=== PATIENT | male | born 1965 | race Caucasian/White ===

== ENCOUNTER 2017-03-04 16:37 | Emergency (ER) | payer OTHER ==
[2017-03-04] MEDS ORDERED: ORPHENADRINE 30 MG/ML 2 ML VIAL IM STA (16:56)
--- NOTE | 2017-03-04 17:30 | XR ---
Lumbar spine HISTORY: Low back pain, trauma 3 views of the lumbar spine There is multilevel spondylosis. Surgical clips in the right upper quadrant. Lumbar vertebral bodies show preserved height and alignment. Loss of disc height L5-S1. Sclerosis present in the posterior el ements. IMPRESSION: Degenerative disc disease and possible facet arthropathy.
[2017-03-04] MEDS ORDERED: HYDROcodone/APAP 5-325MG 1 EACH TAB PO STA (17:58)
--- NOTE | 2017-03-04 18:00 | ED ---
General Adult HPI - General Chief complaint: Back Pain/Injury Stated complaint: Back Pain Time Seen by Provider: 03/04/17 16:51 Source: patient, RN notes reviewed Mode of arrival: wheelchair Limitations: no limitations - History of Present Illness Initial comments: Patient is a 51-year-old male who presents emergency room today with a chief complaint of increased lower back pain. He does admit that he was working well. When he went to stand up and felt a pop in his lower back. Patient also admits that he tripped and fell backwards after this happened. Patient does admit to pain in the lower back greater on the side. Patient denies any lumbar radiculopathy. Denies any saddle anesthesia. Denies any bowel or bladder incontinence or retention. He denies any complaints or associated symptoms. States the pain is worse with movements. He states he did not take any medications prior to arrival. He admits that he does take methotrexate and is supposed to avoid anti-inflammatories. Patient denies any recent fever, chills, shortness of breath, chest pain, abdominal pain, nausea or vomiting, numbness or tingling, dysuria or hematuria, constipation or diarrhea, headaches or visual changes, or any other complaints. - Related Data Home Medications Medication Instructions Recorded Confirmed Methotrexate Sodium [Methotrexate] 17.5 mg PO GEIGER 03/04/17 03/04/17 Multivitamins, Thera [Multivitamin 1 tab PO DAILY 03/04/17 03/04/17 (formulary)] Venlafaxine HCl [Effexor] 37.5 mg PO DAILY 03/04/17 03/04/17 Zolpidem [Ambien] 10 mg PO HS PRN 03/04/17 03/04/17 Previous Rx's Medication Instructions Recorded Cyclobenzaprine [Flexeril] 10 mg PO TID #20 tab 03/04/17 Hydrocodone/Acetaminophen [Goddard 1 each PO Q6HR PRN #20 tab 03/04/17 5-325] Allergies Allergy/AdvReac Type Severity Reaction Status Date / Time No Known Allergies Allergy Verified 03/04/17 17:36 Review of Systems ROS Statement: Those systems with pertinent positive or pertinent negative responses have been documented in the HPI. ROS Other: All systems not noted in ROS Statement are negative. Past Medical History Past Medical History: No Reported History History of Any Multi-Drug Resistant Organisms: None Reported Past Surgical History: Cholecystectomy Past Psychological History: No Psychological Hx Reported Smoking Status: Former smoker Past Alcohol Use History: Occasional Past Drug Use History: None Reported General Exam - General Exam Comments Initial Comments: General: The patient is awake and alert, in no distress, and does not appear acutely ill. Eye: Pupils are equal, round and reactive to light, extra-ocular movements are intact. No nystagmus. There is normal conjunctiva bilaterally. No signs of icterus. Ears, nose, mouth and throat: There are moist mucous membranes and no oral lesions. Neck: The neck is supple, there is no tenderness or JVD. Cardiovascular: There is a regular rate and rhythm. No murmur, rub or gallop is appreciated. Respiratory: Lungs are clear to auscultation, respirations are non-labored, breath sounds are equal. No wheezes, stridor, rales, or rhonchi. Gastrointestinal: Soft, non-distended, non-tender abdomen without masses or organomegaly noted. There is no rebound or guarding present. No CVA tenderness. Musculoskeletal: Normal ROM. Patient does have normal appearance of thoracic, lumbar spine. No step-offs forms appreciated. Mild tenderness to down at L4- L5 of the lumbar spine. Increased paravertebral tenderness on the left side. Strength 5/5. Sensation intact. Pulses equal bilaterally 2+. Neurological: A&O x 3. CN II-XII intact, There are no obvious motor or sensory deficits. Coordination appears grossly intact. Speech is normal. Skin: Skin is warm and dry and no rashes or lesions are noted. Psychiatric: Cooperative, appropriate mood & affect, normal judgment. Limitations: no limitations Course Vital Signs 03/04/17 16:46 Temperature 98.2 F Pulse Rate 76 Respiratory 20 Rate Blood Pressure 113/73 O2 Sat by Pulse 98 Oximetry Medical Decision Making - Medical Decision Making Patient's x-rays reviewed and are negative for any acute abnormalities. Patient feeling better after muscle relaxer here in the emergency room. Will be discharged home with pain medication of Goddard and Flexeril. He is advised follow-up with family doctor over the next 2 days. Patient is advised that it may make him drowsy and that he should not drive with these medications. He states understanding and is in agreement. Disposition Clinical Impression: Acute low back pain Disposition: HOME SELF-CARE Condition: Good Instructions: Acute Low Back Pain (ED) Additional Instructions: Please use medication as discussed. Please be aware that medications may make you drowsy. Please follow-up with family doctor in the next 2 days of symptoms have not improved. Please return to emergency room if the symptoms increase or worsen or for any other concerns. Prescriptions: Cyclobenzaprine [Flexeril] 10 mg PO TID #20 tab Hydrocodone/Acetaminophen [Goddard 5-325] 1 each PO Q6HR PRN #20 tab PRN Reason: Pain Time of Disposition: 17:52
[2017-03-04 18:11] VITALS: BP 114/78; RESP 16; TEMP 98
[2017-03-04 18:12] VITALS: PULSE 70
== END 2017-03-04 18:13 | disposition home or self-care (01) ==
LOC: EC 16:37
DX: M54.5 Low back pain (principal); Z87.891 Personal history of nicotine dependence; Z79.899 Other long term (current) drug therapy
CPT/HCPCS: 72100; 99283; 96372; J2360

== ENCOUNTER → 2020-03-03 | Outpatient (CLI) | payer OTHER ==
--- NOTE | 2020-03-03 11:57 | CT ---
EXAMINATION TYPE: CT abdomen pelvis w con DATE OF EXAM: 03/03/2020 COMPARISON: None. HISTORY: Scrotal varices CT DLP: 1396 mGycm, Automated Exposure Control for Dose Reduction was Utilized. CONTRAST: CT scan of the abdomen and pelvis is performed with oral and with IV Contrast, patient injected with 100 ml mL of Isovue 300. FINDINGS: LUNG BASES: There is left greater than right bibasilar linear scarring and/or atelectasis. LIVER/GB: Cholecystectomy clips are seen. Liver is diffusely low dense relative to the spleen suggest ing diffuse fatty infiltration PANCREAS: No significant abnormality is seen. SPLEEN: No significant abnormality is seen. ADRENALS: No significant abnormality is seen. KIDNEYS: No significant abnormality is seen. BOWEL: Oral contrast reaches level of rectum. No suspicious small or large bowel dilatation. Terminal ileum appears within normal limits coronal image 55. Normal contrast-filled appendix medially from c ecum coronal image 61. PROSTATE/SEMINAL VESICLES: Prostate gland suspected mildly enlarged bulging on bladder base. Correlat e for early BPH. LYMPH NODES: No greater than 1cm abdominal or pelvic lymph nodes are appreciated. OSSEOUS STRUCTURES: Mild to moderate joint space loss in both hips. OTHER: Minimal peripheral plaque in the abdominal aorta. Imaging through the entire scrotum shows sym metric small scrotal fluid collection or hydroceles. IMPRESSION: No suspicious obstructing abdominal or pelvic mass or adenopathy including retroperitoneu m. Fairly unremarkable study.
== END | disposition home or self-care (01) ==
LOC: RADCTMAIN 09:22
PROVIDERS: ATTEND Urology
DX: I86.1 Scrotal varices (principal)
CPT/HCPCS: 74177; Q9967

== ENCOUNTER → 2020-08-26 | Outpatient (CLI) | payer OTHER ==
--- NOTE | 2020-08-26 18:02 | CONS ---
CONSULTATION DATE OF SERVICE: 08/26/2020 This patient is a 55-year-old gentleman who has been evaluated in the sleep center for possible obstructive sleep apnea-hypopnea syndrome. HISTORY OF PRESENT ILLNESS/SLEEP-WAKE EVALUATION: Patient's usual sleep schedule is from 10:30 p.m. to 6:30 a.m. on weekdays and from 11:30 p.m. to between 5 and 7:30 a.m. on weekends. Usually no problems with falling asleep at present, but before patient had a lot of difficulties falling asleep. He wakes up from sleep two times with episodes of choking. According to his , he snores and has episodes of choking at night. In the morning the patient wakes up tired, has difficulties paying attention, worries about his sleep, has problems with concentration irritability, depression, claustrophobia and anxiety. [place] Sleepiness Scale is 9. PAST MEDICAL HISTORY: Positive for anxiety, psoriasis of the skin and psoriatic arthritis. PAST SURGICAL HISTORY: Cholecystectomy. FAMILY HISTORY: Cancer, acid reflux, hypertension. REVIEW OF SYSTEMS: Snoring, awakenings from sleep, claustrophobia. PHYSICAL EXAMINATION: GENERAL: A pleasant gentleman without distress. VITAL SIGNS: BP 143/88, HR 64, RR 15, height 5 feet 11 inches, weight 208.8. Temperature 98.2, oxygen saturation at room air 97%. HEENT: PERRLA, EOMI. Evaluation of oropharynx showed tongue protrudes midline. Extremely low position of soft palate. Mallampati IV. NECK: Supple. No JVD. Thyroid is not palpable. Wide neck measuring 18-1/2 inches in circumference. LUNGS: Clear to percussion and to auscultation. Good air exchange. No wheezing or rhonchi. HEART: S1, S2 regular. No murmurs, gallops or rubs. ABDOMEN: Slightly obese. EXTREMITIES: No clubbing or cyanosis. PUBLIC RELATIONS ACCOUNT EXECUTIVE: Awake, alert, and oriented X3. Cranial nerves 2 to 7 intact. There is no fasciculation or atrophy. noted. No focal deficits observed. IMPRESSION: 1. Snoring, witnessed episodes of choking, extremely low position of soft palate, Mallampati IV, wide neck at 18-1/2 inches in circumference. 2. Anxiety. 3. Psoriasis of the skin. 4. History of psoriatic arthritis. 5. Status post cholecystectomy. 6. Overweight. BMI 29.0. PLAN: 1. Polysomnography for evaluation of patient's breathing during sleep. 2. CPAP/BiPAP titration if sleep study confirms obstructive sleep apnea-hypopnea syndrome. 3. Preferable position during sleep on the side. 4. No driving if patient feels any sleepiness. 5. I will see patient for follow up visit to explain results of testing and following plan. Thank you very much for referring this patient for consultation. Sincerely, Nicolas Conroy MD, PhD, FAASM Diplomat of [employer] [employer] [employer] Accessories Repairer of [facility] [place] MMODL / IJN: [id number] /
== END | disposition home or self-care (01) ==
LOC: SLEEP 15:45
PROVIDERS: ATTEND Internal Medicine
DX: R06.83 Snoring (principal); L40.9 Psoriasis, unspecified; F41.9 Anxiety disorder, unspecified; E66.3 Overweight; Z87.39 Personal history of other diseases of the musculoskeletal system and connective tissue; Z90.49 Acquired absence of other specified parts of digestive tract; Z98.890 Other specified postprocedural states; Z68.29 Body mass index [BMI] 29.0-29.9, adult
CPT/HCPCS: 99211

== ENCOUNTER → 2021-01-19 | Outpatient (CLI) | payer OTHER ==
--- NOTE | 2021-01-19 22:07 | SFUN ---
SLEEP CENTER FOLLOW UP NOTE DATE OF SERVICE: 01/19/2021 This 55-year-old gentleman has been followed in Sleep Center for treatment of obstructive sleep apnea-hypopnea syndrome. Recently the patient had a polysomnogram which showed severe obstructive sleep apnea, and I discussed the results of his sleep studies with the patient in detail. After the polysomnogram he had CPAP titration and his respiration normalized. I wrote a prescription for CPAP equipment, and today is his first visit after he started to use CPAP machine. The patient is able to use his CPAP machine without significant problems. He did not use it for several weeks, though, because at that time he had COVID-19. At present he is using the machine. He sleeps better with the machine. [place] Sleepiness Scale is 5. I checked his CPAP unit. CPAP pressure is 8 cm of water. Usage is 19/30 nights, and 13/30 nights for more than 4 hours, average usage 5.2 hours per night. Leak is 10 L/minute. Apnea-hypopnea index is 4.1, which is normal. MEDICATIONS: Lorazepam, zolpidem, Humira. PHYSICAL EXAMINATION: GENERAL: A pleasant patient in no distress. VITAL SIGNS: BP 133/78, HR 72, RR 16, weight 210.6, temperature 97.0, oxygen saturation at room air 98%. HEENT: PERRLA, EOMI. Evaluation of oropharynx showed tongue protrudes midline. Extremely low position of soft palate. Mallampati IV. NECK: Supple. No JVD. Thyroid is not palpable. LUNGS: Clear to percussion and to auscultation. Good air exchange. No wheezing or rhonchi. HEART: S1, S2 regular. No murmurs, gallops or rubs. ABDOMEN: Soft and nontender. Bowel sounds are present. No organomegaly appreciated. EXTREMITIES: No clubbing or cyanosis. NEWSPAPER DELIVERY COUNSELOR: Awake, alert, and oriented X3. Cranial nerves 2 to 7 intact. There is no fasciculation or atrophy. noted. No focal deficits observed. IMPRESSION: 1. Severe obstructive sleep apnea-hypopnea syndrome; apnea-hypopnea index 56.4 with oxygen desaturation to 71%, under control with CPAP. Patient is benefitting from treatment. 2. History of COVID-19 several weeks ago. 3. Anxiety. 4. History of psoriasis. 5. History of psoriatic arthritis. 6. Status post cholecystectomy. PLAN: 1. I discussed the necessity of using CPAP equipment every night for the whole night, and the patient promised to do so. 2. Sleep hygiene with regular time in bed for at least 7-1/2 to 8 hours. 3. Precautions related to driving. No driving if feeling sleepiness. 4. I will maintain all necessary prescription for PAP supplies including mask, tube, filters. 5. Watching weight. 6. Follow-up visit in 6 months or earlier if patient has any problems. Thank you very much for allowing me to participate in the management of your patient. Sincerely, Nicolas Conroy MD, PhD, FAASM Diplomat of [employer] [employer] [place] [employer] Animal Rides Manager of [facility] [place] MMODL / CHERYLN: [id number] /
== END ==
LOC: SLEEP 15:20
PROVIDERS: ATTEND Internal Medicine
DX: G47.33 Obstructive sleep apnea (adult) (pediatric) (principal); F41.9 Anxiety disorder, unspecified; Z90.49 Acquired absence of other specified parts of digestive tract; Z86.16 Personal history of COVID-19; Z87.2 Personal history of diseases of the skin and subcutaneous tissue; Z87.39 Personal history of other diseases of the musculoskeletal system and connective tissue; Z79.899 Other long term (current) drug therapy; Z87.891 Personal history of nicotine dependence

== ENCOUNTER → 2021-08-11 | Outpatient (CLI) | payer BC ==
--- NOTE | 2021-08-11 21:02 | SFUN ---
SLEEP CENTER FOLLOW UP NOTE DATE OF SERVICE: 08/11/2021 INTERVAL HISTORY: 56-year-old gentleman has been followed in Sleep Center for treatment of obstructive sleep apnea-hypopnea syndrome. The patient continues to use his CPAP equipment every night, but presently he has some awakenings from sleep while using his CPAP equipment. [place] Sleepiness Scale today is 4. Sometimes patient has difficulties to initiate sleep when wakes up from sleep at the middle of the night. I checked his CPAP unit. Pressure is 8 cm of water. Usage is 28/30 nights for more than 4 hours, average 7.8 hours per night. Leak is 2 L/minute which is great. Apnea- hypopnea index is 4.3. The patient is using a fullface F20 ResMed medium size mask and he likes this mask. I checked condition of air filter it is acceptable. MEDICATIONS: Occasionally patient takes Ambien. PHYSICAL EXAMINATION: GENERAL: Patient in no distress. BP 105/67, HR 68, RR 14. Height 6 feet 0, weight 210.4, which is the same as during the last visit temperature 97.4, oxygen saturation at room air 95%. Oropharynx extremely low position of soft palate, Mallampati 4. NECK: Supple, no JVD. Thyroid is not palpable. LUNGS: Clear to percussion and to auscultation. Good air exchange. No wheezing or rhonchi. HEART: S1, S2 regular. No murmurs, gallops, or rubs. ABDOMEN: Soft and nontender. Bowel sounds are present. No organomegaly appreciated. EXTREMITIES: No clubbing or cyanosis. PROGRAMMING MANAGER: Awake, alert, and oriented X3. Cranial nerves 2 to 7 intact. There is no fasciculation or atrophy. noted. No focal deficits observed. IMPRESSION: 1. Severe obstructive sleep apnea-hypopnea syndrome, apnea-hypopnea index 56.4 with oxygen desaturation to 71%. The patient demonstrated great compliance with treatment benefitting from treatment. The patient indicated that he has some awakenings from sleep while using CPAP. 2. History of Covid 19 in December of 2020. 3. Anxiety. 4. History of psoriasis. 5. History of psoriatic arthritis. 6. Status post cholecystectomy. PLAN: 1. I changed regimen of his CPAP unit to the range of the pressure 5-12. 2. Patient will continue to use PAP equipment every night for the whole night. 3. Sleep hygiene with regular time in bed for at least 7-1/2 to 8 hours. 4. Precautions related to driving. No driving if feeling sleepiness. 5. I will maintain all necessary prescription for PAP supplies including mask, tube, filters. 6. Watching weight. 7. I discussed with the patient psychological techniques for treatment of insomnia including stimulus control, paradoxical intention, worry time, no watching clock. 8. Follow-up visit in 6 months or earlier if patient has any problems. I spent with the patient and documentation of 30 minutes. Thank you very much for allowing me to participate in management of your patient. Sincerely, Nicolas Conroy MD, PhD, FAASM Diplomat of [employer] [employer] Sleep Medicine Board of [place] [employer] Medicine Cra of [facility] [place] MMODL / CHERYLN: [id number] /
== END | disposition home or self-care (01) ==
LOC: SLEEP 14:29
PROVIDERS: ATTEND Internal Medicine
DX: G47.33 Obstructive sleep apnea (adult) (pediatric) (principal); Z86.16 Personal history of COVID-19; F41.9 Anxiety disorder, unspecified; Z87.39 Personal history of other diseases of the musculoskeletal system and connective tissue; K91.5 Postcholecystectomy syndrome

== ENCOUNTER → 2022-02-09 | Outpatient (CLI) | payer BC ==
--- NOTE | 2022-02-09 13:15 | SFUN ---
SLEEP CENTER FOLLOW UP NOTE DATE OF SERVICE: 02/09/2022 56-year-old gentleman has been followed in Sleep Center for treatment of obstructive sleep apnea-hypopnea syndrome. The patient continues to use his CPAP equipment every night, getting his supplies in time, changing air filter. [place] Sleepiness Scale today is 5, which is normal. During previous visit, I changed his regimen in his machine from a constant pressure to automatic regimen. I checked CPAP unit. Range of the pressure 5-12 average, 11.3, usage 30/30 nights for more than 4 hours, average 7.6 hours per night. Leak is 1 L/minute. Apnea-hypopnea index is 1.6 which is totally normal. MEDICATIONS: Humira, Ambien. PHYSICAL EXAMINATION: GENERAL: Patient in no distress. BP 130/80, HR 58, RR 16, weight 212.4, temperature 97.5, oxygen saturation at room air 97%. Oropharynx: Extremely low position of soft palate, Mallampati 4. NECK: Supple, no JVD. Thyroid is not palpable. LUNGS: Clear to percussion and to auscultation. Good air exchange. No wheezing or rhonchi. HEART: S1, S2 regular. No murmurs, gallops, or rubs. ABDOMEN: Soft and nontender. Bowel sounds are present. No organomegaly appreciated. EXTREMITIES: No clubbing or cyanosis. SEAM CHECKER: Awake, alert, and oriented X3. Cranial nerves 2 to 7 intact. There is no fasciculation or atrophy. noted. No focal deficits observed. IMPRESSION: 1. Severe obstructive sleep apnea-hypopnea syndrome apnea-hypopnea index on original study 56.4. The patient demonstrated 100% compliance with treatment, benefitting from treatment, normal respiration on CPAP. Apnea-hypopnea index reduced after adjusting pressure on CPAP unit during previous visit. 2. History of COVID 19 in December 2020. 3. History of psoriasis. 4. History of psoriatic arthritis. 5. Anxiety. 6. Status post cholecystectomy. PLAN: 1. Patient will continue to use PAP equipment every night for the whole night. 2. Sleep hygiene with regular time in bed for at least 7-1/2 to 8 hours. 3. Precautions related to driving. No driving if feeling sleepiness. 4. I will maintain all necessary prescription for PAP supplies including mask, tube, filters. 5. Watching weight. 6. Follow-up visit in 6 months or earlier if patient has any problems. Thank you very much for allowing me to participate in the management of your patient. Sincerely, Nicolas Conroy MD, PhD, FAASM Diplomat of [employer] [employer] Sleep Medicine Board of [place] [employer] of Internal Medicine Direct Care Provider of [facility] [place] MMBEVERLY / ONOFRE: [id number] /
== END | disposition home or self-care (01) ==
LOC: SLEEP 10:17
PROVIDERS: ATTEND Internal Medicine
DX: G47.33 Obstructive sleep apnea (adult) (pediatric) (principal); Z86.16 Personal history of COVID-19; F41.9 Anxiety disorder, unspecified; Z87.39 Personal history of other diseases of the musculoskeletal system and connective tissue; Z90.49 Acquired absence of other specified parts of digestive tract

== ENCOUNTER → 2023-02-08 | Outpatient (CLI) | payer BC ==
--- NOTE | 2023-02-08 11:14 | P.PN ---
Subjective DATE: 02/08/2023 FOLLOW UP VISIT. Patient with obstructive sleep apnea hypopnea syndrome return to sleep center for follow-up visit. Information from previous visit have been reviewed. Patient is using PAP equipment every night for the whole night, getting PAP supplies in time. The patient does not have significant problems with the mask, PAP unit and humidification. [place] sleepiness scale is 7, which is normal. I checked information from PAP unit and explained it to the patient in details. PAP unit pressure 5-12, average 11.9 cm H2O. Usage is 100 % for more then 4 hours, average 7.5 hours per night. Leak is 0.9 l/m, which is in acceptable range. Apnea Hypopnea Index is 0.7, which is normal. MEDICATIONS:1. Ambien as needed 2. Lorazepam as needed 3. Humira twice a months During physical exam: GENERAL: A pleasant patient without any distress. VITAL SIGNS: BP 115/73, HR 100, RR 16, weight 233, temperature 97.8, oxygen saturation at room air 100 % . HEENT: PERRLA, EOMI.low position of soft palate, Mallapati 4 . NECK: Supple. No JVD. LUNGS: Clear to percussion and to auscultation. Good air exchange. No wheezing or rhonchi. HEART: S1, S2 regular. ABDOMEN: Soft and nontender.[] EXTREMITIES: No clubbing or cyanosis. COP WINDER: Awake, alert, and oriented x3. No focal deficit. Impressions: 1. Obstructive sleep apnea-hypopnea syndrome. Patient demonstrated great compliance with treatment, benefiting from treatment. 2. Mild obesity, patient increased his weight on 21 pounds since previous visit, BMI 32.3. 3. History of psoriasis and psoriatic arthritis. 4. Anxiety. 5. History of COVID-19. 6. Status post cholecystectomy. Plan: 1. Continue using PAP equipment every night for the whole night. 2. To change air filter at least 1-2 times per month. 3. PAP unit should stay lower then position of the head. 4. Advised patient to remove all remaining water from humidifier canister daily and make it dry after each usage. Refill canister with fresh distilled water before each usage. 5. Sleep hygiene with regular time in bed for at least 8 hours. 6. Precautions related to driving. No driving if feel any sleepiness. 7. I will maintain prescription for PAP supplies including mask, tube, filters. 8. Follow up visit in 6 months or earlier if patient has any problems. 9. Watching and losing weight. Thank you very much for allowing me to participate in the management of your patient. Nicolas Conroy MD, PhD, FAASM. Diplomat of [place] [employer], Sleep Medicine Board by [place] [employer] Dishcloth Folder of [facility] [place]
== END ==
LOC: SLEEP 10:15
PROVIDERS: ATTEND Internal Medicine
DX: G47.33 Obstructive sleep apnea (adult) (pediatric) (principal); E66.9 Obesity, unspecified; L40.50 Arthropathic psoriasis, unspecified; F41.9 Anxiety disorder, unspecified; Z90.49 Acquired absence of other specified parts of digestive tract; Z86.16 Personal history of COVID-19; Z98.890 Other specified postprocedural states; Z99.89 Dependence on other enabling machines and devices; Z68.32 Body mass index [BMI] 32.0-32.9, adult; Z87.891 Personal history of nicotine dependence
CPT/HCPCS: 99212

== ENCOUNTER → 2024-02-14 | Outpatient (CLI) | payer BC ==
--- NOTE | 2024-02-14 12:05 | P.PN ---
Subjective DATE: 02/14/2024 FOLLOW UP VISIT. Patient with obstructive sleep apnea hypopnea syndrome return to sleep center for follow-up visit. Information from previous visit have been reviewed. Patient is using PAP equipment every night for the whole night, getting PAP supplies in time. The patient does not have significant problems with the mask, PAP unit and humidification. [place] sleepiness scale is 4. I checked information from PAP unit. PAP unit pressure 5-12, average 10.7 cm H2O. Usage is 100% for more then 4 hours, average 6.8 hours per night. Leak is perfect 0.1 l/m. Apnea Hypopnea Index is 0.7, which is normal. MEDICATIONS:1. Ambien as needed 2. Humira twice a month During physical exam: GENERAL: A pleasant patient without any distress. VITAL SIGNS: Please see below, weight is 196 pounds. HEENT: PERRLA, EOMI.low position of soft palate, Mallapati 4 . NECK: Supple. No JVD. LUNGS: Clear to percussion and to auscultation. Good air exchange. No wheezing or rhonchi. HEART: S1, S2 regular. ABDOMEN: Soft and nontender.[] EXTREMITIES: No clubbing or cyanosis. GLOVE MAKER: Awake, alert, and oriented x3. No focal deficit. Impressions: 1. Obstructive sleep apnea-hypopnea syndrome. Patient demonstrated great compliance with treatment, benefiting from treatment. 2. History of obesity, patient lost 37 pounds of weight, present body mass index 28.1. 3. History of anxiety. 4. History of psoriasis and psoriatic arthritis. 5. Status post COVID-19. 6. Status post cholecystectomy. Plan: 1. Continue using PAP equipment every night for the whole night. 2. To change air filter at least 1-2 times per month. 3. PAP unit should stay lower then position of the head. 4. Advised patient to remove all remaining water from humidifier canister daily and make it dry after each usage. Refill canister with fresh distilled water before each usage. 5. Sleep hygiene with regular time in bed for at least 8 hours. 6. Precautions related to driving. No driving if feel any sleepiness. 7. I will maintain prescription for PAP supplies including mask, tube, filters. 8. Follow up visit in 6 months or earlier if patient has any problems. 9. Watching weight. Thank you very much for allowing me to participate in the management of your patient. Nicolas Conroy MD, PhD, FAASM. Diplomat of [place] [employer], Sleep Medicine Board by [employer] [employer] Labor Contract Analyst of [facility] [place] Objective - Vital Signs Vital signs: Vital Signs Temp 97.9 F 02/14/24 11:36 Pulse 76 02/14/24 11:36 Resp 16 02/14/24 11:36 BP 142/90 02/14/24 11:36 Pulse Ox 99 02/14/24 11:36 FiO2 Intake & Output 02/13/24 02/14/24 02/14/24 18:59 06:59 18:59 Weight 88.904 kg
[2024-02-14 12:10] VITALS: BP 142/90; PULSE 76; RESP 16; TEMP 97.9
== END ==
LOC: 3 N SLEEP 10:59
PROVIDERS: ATTEND Internal Medicine
DX: G47.33 Obstructive sleep apnea (adult) (pediatric) (principal); E66.9 Obesity, unspecified; F41.9 Anxiety disorder, unspecified; Z86.16 Personal history of COVID-19; Z90.49 Acquired absence of other specified parts of digestive tract; Z87.39 Personal history of other diseases of the musculoskeletal system and connective tissue; Z99.89 Dependence on other enabling machines and devices; Z68.28 Body mass index [BMI] 28.0-28.9, adult; Z87.891 Personal history of nicotine dependence
CPT/HCPCS: 99212

== ENCOUNTER 2024-02-23 14:53 | Emergency (ER) | payer BC ==
--- NOTE | 2024-02-23 15:35 | ED ---
Fall HPI - General Chief Complaint: Fall Stated Complaint: Fall Time Seen by Provider: 02/23/24 15:33 Source: patient, family, RN notes reviewed Mode of arrival: ambulatory Limitations: no limitations - History of Present Illness Initial Comments: 58-year-old male presenting to the ER with a chief complaint of a fall. Patient states he was working on his boat and accidentally missed a step when coming down the ladder and accidentally fell. He states he was about 5 feet high and landed on his left side on the cement. He denies any head injury, loss of consciousness or blood thinner use. He reports most of his pain is over his left ribs and increases with breathing. He also reports left elbow injury and abrasion. Tetanus is up-to-date. He denies any dizziness, lightheadedness, shortness of breath or chest pain prior to fall. No other complaints at this time. - Related Data Home Medications Medication Instructions Recorded Confirmed Zolpidem [Ambien] 10 mg PO HS PRN 03/04/17 02/23/24 Adalimumab [Humira(Cf) Pen] 40 mg SQ Q14D 02/23/24 02/23/24 LORazepam [Ativan] 0.5 mg PO BID PRN 02/23/24 02/23/24 Allergies Allergy/AdvReac Type Severity Reaction Status Date / Time No Known Allergies Allergy Verified 02/23/24 15:47 Review of Systems ROS Statement: Those systems with pertinent positive or pertinent negative responses have been documented in the HPI. ROS Other: All systems not noted in ROS Statement are negative. Past Medical History Past Medical History: No Reported History History of Any Multi-Drug Resistant Organisms: None Reported Past Surgical History: Cholecystectomy Past Psychological History: No Psychological Hx Reported Smoking Status: Never smoker Past Alcohol Use History: Occasional Past Drug Use History: None Reported General Exam Limitations: no limitations General appearance: alert, in no apparent distress Head exam: Present: atraumatic, normocephalic, normal inspection Eye exam: Present: normal appearance, PERRL, EOMI. Absent: scleral icterus, conjunctival injection, periorbital swelling Neck exam: Present: normal inspection. Absent: tenderness, meningismus, lymphadenopathy Respiratory exam: Present: normal lung sounds bilaterally, chest wall tenderness (left posterior ribs. Appropriate chest wall movement with inspiration and expiration). Absent: respiratory distress, wheezes, rales, rhonchi, stridor Cardiovascular Exam: Present: regular rate, normal rhythm, normal heart sounds. Absent: systolic murmur, diastolic murmur, rubs, gallop, clicks Extremities exam: Present: normal inspection, full ROM, normal capillary refill. Absent: tenderness, pedal edema, joint swelling, calf tenderness Back exam: Present: normal inspection Skin exam: Present: abrasion (Superficial abrasion to left elbow. Surrounding edema. Patient has full active range of motion. 2+ left radial pulse. Sensation intact.) Course Vital Signs 02/23/24 02/23/24 15:10 17:24 Temperature 97.8 F 98.1 F Pulse Rate 79 80 Respiratory 18 18 Rate Blood Pressure 129/88 138/83 O2 Sat by Pulse 99 100 Oximetry Medical Decision Making - Medical Decision Making Was pt. sent in by a medical professional or institution (, PA, DEPARTMENT OF NATURAL RESOURCES OFFICER, urgent care, hospital, or snf...) When possible be specific @ -No Did you speak to anyone other than the patient for history (EMS, parent, family, police, friend...)? What history was obtained from this source @ -No Did you review nursing and triage notes (agree or disagree)? Why? @ -I reviewed and agree with nursing and triage notes Were old charts reviewed (outside hosp., previous admission, EMS record, old EKG, old radiological studies, urgent care reports/EKG's, snf records)? Report findings @ -No old charts were reviewed Differential Diagnosis (chest pain, altered mental status, abdominal pain women, abdominal pain men, vaginal bleeding, weakness, fever, dyspnea, syncope, headache, dizziness, GI bleed, back pain, seizure, CVA, palpatations, mental health, musculoskeletal)? @ -Fracture, dislocation, contusion, hematoma, intracranial hemorrhage, concussion, abrasion, laceration this list does not like to be all-inclusive EKG interpreted by me (3pts min.). @ -None X-rays interpreted by me (1pt min.). @ -Left elbow x-ray interpreted by me negative for acute process. Left ribs AP chest x-ray negative for acute process. CT interpreted by me (1pt min.). @ -None done U/S interpreted by me (1pt. min.). @ -None done What testing was considered but not performed or refused? (CT, X-rays, U/S, labs)? Why? @ -None What meds were considered but not given or refused? Why? @ -None Did you discuss the management of the patient with other professionals (professionals i.e. , PA, DEPARTMENT OF NATURAL RESOURCES OFFICER, lab, RT, psych nurse, socially responsible investment adviser, polysomnography tech, teacher, adult probation officer, medical case worker)? Give summary @ -No Was smoking cessation discussed for >3mins.? @ -No Was critical care preformed (if so, how long)? @ -No Were there social determinants of health that impacted care today? How? (Homelessness, low income, unemployed, alcoholism, drug addiction, transportation, low edu. Level, literacy, decrease access to med. care, [facility], rehab)? @ -No Was there de-escalation of care discussed even if they declined (Discuss DNR or withdrawal of care, Hospice)? DNR status @ -No What co-morbidities impacted this encounter? (DM, HTN, Smoking, COPD, CAD, Cancer, CVA, ARF, Chemo, Hep., AIDS, mental health diagnosis, sleep apnea, morbid obesity)? @ -None Was patient admitted / discharged? Hospital course, mention meds given and route, prescriptions, significant lab abnormalities, going to OR and other pertinent info. @ -Discharge. 58-year-old male presenting to the ER with chief complaint of fall. History and physical exam completed. Vitals stable. Patient no signs of acute distress and nontoxic-appearing. Abrasion to left elbow. Bilateral upper and lower extremities neurovascular intact. No evidence of flail chest. Lung sounds clear and present in all lung fox. X-rays obtained negative for acute process. Pain control achieved in the ER. Results discussed with patient, all questions answered. Patients tetanus is UTD. Incentive spirometer given. Tylenol 3 starter pack given. Strict return parameters discussed. Patient discharged in stable condition with follow-up to PCP. Patient verbally expressed understanding and agreement with care plan. Case discussed with ED attending, Dr. Valdovinos. Undiagnosed new problem with uncertain prognosis? @ -No Drug Therapy requiring intensive monitoring for toxicity (Heparin, Nitro, Insulin, Cardizem)? @ -No Were any procedures done? @ -No Diagnosis/symptom? @ -Rib contusion/abrasion Acute, or Chronic, or Acute on Chronic? @ -Acute Uncomplicated (without systemic symptoms) or Complicated (systemic symptoms)? @ -Uncomplicated Side effects of treatment? @ -No Exacerbation, Progression, or Severe Exacerbation? @ -No Poses a threat to life or bodily function? How? (Chest pain, [place], [place], pneumonia, PE, COPD, DKA, ARF, appy, cholecystitis, CVA, Diverticulitis, Homicidal, Suicidal, threat to staff... and all critical care pts) @ -No - Radiology Data Radiology results: report reviewed, image reviewed Disposition Clinical Impression: Fall, Rib contusion Disposition: HOME SELF-CARE Condition: Stable Instructions (If sedation given, give patient instructions): How to Use an Incentive Spirometer (ED), Fall Prevention (ED) Additional Instructions: Only take Tylenol 3s for extreme pain. Use incentive spirometer once per hour. Follow-up with PCP. Return to the ER for any new or worsening concerns. Is patient prescribed a controlled substance at d/c from ED?: No Referrals: Chidi Salazar MD [Primary Care Provider] - 1-2 days Time of Disposition: 17:11
[2024-02-23 15:41] VITALS: RESP 18
[2024-02-23] MEDS: ACETAMINOPHEN TAB 325 MG TAB PO STA (15:53)
--- NOTE | 2024-02-23 17:03 | XR ---
EXAMINATION TYPE: XR ribs LT w PA chest xray (5 views), XR elbow complete 3 views LT DATE OF EXAM: 02/23/2024 Comparison: None Clinical History: 58-year-old male with pain s/p fall Findings: Chest: The cardiomediastinal silhouette, aorta, and pulmonary vasculature are within normal limits. There i s strandy atelectasis at the left base. No consolidation or pleural effusion. No displaced left rib fracture seen. Cholecystectomy clips. Left elbow: There is soft tissue swelling about the elbow especially laterally and overlying the olecranon. Elbo w joint effusion. No acute fracture, subluxation, dislocation seen. Impression: 1. Chest: Strandy left basilar atelectasis. No acute cardiopulmonary process or displaced left rib fr acture seen. 2. Left elbow: Soft tissue swelling without joint effusion or acute osseous abnormality seen.
[2024-02-23] MEDS: HYDROmorphone 0.5 MG/0.5 ML SYRINGE IM STA (17:19)
[2024-02-23] MEDS: ACET/COD 300 MG/30 MG STARTER PACK 6 TAB BTL PO STA (17:21)
[2024-02-23 17:36] VITALS: BP 138/83; PULSE 80; TEMP 98.1
== END 2024-02-23 17:26 | disposition home or self-care (01) ==
LOC: EC 14:53
DX: S20.212A Contusion of left front wall of thorax, initial encounter (principal); Z90.49 Acquired absence of other specified parts of digestive tract; W10.8XXA Fall (on) (from) other stairs and steps, initial encounter
CPT/HCPCS: 71101; 73080; 99284; 96372; J1170